=== PATIENT | male | born 1970 | race Caucasian/White ===

== ENCOUNTER 2022-02-09 21:39 | Emergency (ER) | payer OTHER, SELFPAY ==
[2022-02-09 21:45] VITALS: BP 146/78; PULSE 75; RESP 18; TEMP 36.6; O2SAT 97; BMI 29.6
[2022-02-09 23:59] LABS: SARS PCR* POSITIVE SARS-CoV-2 (Negative)
--- NOTE | 2022-02-10 00:31 | ED_ITS ---
HPI - General Adult General Chief complaint: Unspecified Complaint, Adult Stated complaint: Wants a Covid Test Time Seen by Provider: 02/09/22 23:16 History of Present Illness HPI narrative: This 51-year-old male tested positive for COVID at home and comes in stating that he needs a test from us for his work to indicate that it is truly positive for COVID. He does have symptoms of cough and decreased sense of taste and smell. He does not report any shortness of breath. He is not reporting any fevers. Related Data Home Medications Medication Instructions Recorded Confirmed apixaban 5 mg tablet (Eliquis) mg 02/09/22 flecainide 100 mg tablet mg 02/09/22 omeprazole 40 mg capsule,delayed mg 02/09/22 release simvastatin 20 mg tablet mg 02/09/22 Previous Rx's Medication Instructions Recorded acetaminophen 300 mg-codeine 30 mg 1 tab PO Q6H PRN #20 tab 02/10/22 tablet methylprednisolone 4 mg tablets in 4 mg PO DAILY #21 ea 02/10/22 a dose pack (Medrol (Lino)) Allergies Allergy/AdvReac Type Severity Reaction Status Date / Time No Known Drug Allergies Allergy Verified 02/09/22 21:49 Review of Systems Status of ROS: Reports: 10 or more systems reviewed and unremarkable except as noted in History and below Narrative: Constitutional: No fevers, no weight gain or loss. Eyes: No discharge. No vision changes. HENT: No congestion, no sore throat, no ear pain. Cardiovascular: No chest pain, no palpitations. Respiratory: No shortness of breath. Nasal congestion and cough. Gastrointestinal: No abdominal pain, no vomiting, no diarrhea. Genitourinary: No dysuria, no hematuria. Musculoskeletal: Normal range of motion. Skin: No rashes, no pruritis. Neurological: No dizziness, weakness, sensory change, speech change. Endo/Heme/Allergies: No bruising or bleeding. No polydipsia. Pysch: no suicidality, no anxiety, no insomnia. All other systems reviewed and are negative. PFSH PFS Social History Smoking Status: Former smoker How often do you have a drink containing alcohol: 2-4 times a month AUDIT-C Alcohol total score: 2 Non-prescribed substance use: denies use Exam Narrative: Exam Narrative: Constitutional: Well-developed, well-nourished, no acute distress. HEENT: Normocephalic, atraumatic. Neck: Normal range of motion. Nontender. Supple. Heart: Intact distal pulses. Lungs: No chest discomfort. No wheezes, rhonchi, or rales. Abdomen: Nontender. Back: Normal range of motion. Extremities: Normal range of motion. No injury. Skin: Intact. No rash. Warm. No erythema or pallor. Neurologic: No altered sensation. No weakness. Alert and oriented. Psychiatric: No suicidality. No anxiety or depression. No insomnia. Nursing notes and vitals signs are reviewed. Const: Vital Signs, click to edit/add: Vital Signs - 24 hr 02/09/22 21:45 Temperature 97.9 F Pulse Rate [Left P ulse Oximeter] 75 Respiratory Rate 18 Blood Pressure [Ri ght Upper Arm] 146/78 H Pulse Oximetry 97 Course Vital Signs Vital signs: Initial Vital Signs Temperature 97.9 F 02/09/22 21:45 Temperature Source Temporal Artery Scan 02/09/22 21:45 Pulse Rate 75 02/09/22 21:45 Respiratory Rate 18 02/09/22 21:45 Blood Pressure 146/78 H 02/09/22 21:45 Blood Pressure Mean 100 02/09/22 21:45 Blood Pressure Position Sitting 02/09/22 21:45 Pulse Oximetry 97 02/09/22 21:45 Oxygen Delivery Method 02/09/22 21:45 Vital Signs Temperature 97.9 F 02/09/22 21:45 Pulse Rate 75 02/09/22 21:45 Respiratory Rate 18 02/09/22 21:45 Blood Pressure 146/78 H 02/09/22 21:45 Pulse Oximetry 97 02/09/22 21:45 Temperature 97.9 F 02/09/22 21:45 Pulse Rate 75 02/09/22 21:45 Respiratory Rate 18 02/09/22 21:45 Blood Pressure 146/78 H 02/09/22 21:45 Pulse Oximetry 97 02/09/22 21:45 Medical Decision Making MDM Narrative Medical decision making narrative: This patient needs a COVID test results from a a medical facility so he comes here. His COVID test here is positive. He is not having any abnormalities in his vital signs. He is okay to return home and with instructions to come back if becoming short of breath or other worsening symptoms. He did receive a prescription for Medrol Dosepak and some tablets of Tylenol 3. Lab Data Labs: Lab Results 02/09/22 Range/Units Unknown SARS-CoV-2 (PCR) POSITIVE SARS-CoV-2 A (Negative) Discharge Plan Discharge Clinical Impression: COVID-19 Patient Disposition: Home, Self-Care Condition: Stable Instructions: COVID-19 (Coronavirus Disease 2019) (ED) Additional Instructions: Take medication as needed and prescribed. Follow up with MD or return if worsening. Prescriptions: New methylprednisolone [Medrol (Lino)] 4 mg tablets,dose pack 4 mg PO DAILY Qty: 21 0RF acetaminophen-codeine 300-30 mg tablet 1 tab PO Q6H PRN (Reason: pain) Qty: 20 0RF No Action omeprazole 40 mg capsule,delayed release(DR/EC) 0RF Label Comments: TAKE 1 CAPSULE BY MOUTH IN THE MORNING simvastatin 20 mg tablet 0RF Label Comments: TAKE 1 TABLET BY MOUTH EVERYDAY AT BEDTIME flecainide 100 mg tablet 0RF Label Comments: TAKE 1 TABLET BY MOUTH TWICE A DAY Eliquis 5 mg tablet 0RF Label Comments: TAKE 1 TABLET BY MOUTH TWICE A DAY Follow Up/Referrals: Mich Jimenez MD [Primary Care Provider] - Stand Alone Forms: [employer] Info Instructions
== END 2022-02-10 00:49 | disposition home or self-care (01) ==
PROVIDERS: Emergency Provider Emergency Medicine Emergency Medical Services; PCP Family Medicine
DX: U07.1 COVID-19 (principal)
CPT/HCPCS: 87502; 87635; 99283; 99284

== ENCOUNTER 2022-07-15 12:08 | Emergency (ER) | payer OTHER, SELFPAY ==
[2022-07-15 12:10] VITALS: BP 147/74; PULSE 61; RESP 20; TEMP 36.4; O2SAT 97; BMI 29.6
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
[2022-07-15 13:03] LABS: Basophils Absolute Auto 0.02 K/uL (0.00-0.30); Basophils Percent Auto 0.3 % (0.0-3.0); Eosinophils Absolute Auto 0.14 K/uL (0.00-0.50); Hematocrit 42.7 % (37.0-53.0); Hemoglobin* 14.7 gm/dL (13.5-17.5); Immature Granulocytes Abs Auto 0.01 K/uL (0.00-0.30); Immature Granulocytes Pct Auto 0.1 %; Lymphocytes Absolute Auto 1.97 K/uL (0.90-2.90); Lymphocytes Percent Auto 28.6 % (20-44); Mean Corpuscular HGB Conc 34 gm/dL (32-36); Mean Corpuscular Hemoglobin 31 pg (26-34); Mean Corpuscular Volume 89 fL (80-100); Monocytes Percent Auto 8.3 % (0.0-11.0); Neutrophils Absolute Auto 4.18 K/uL (1.7-7.0); Neutrophils Percent Auto 60.7 % (42.0-72.0); Platelet Count* 247 K/uL (140-440); RDW Coefficient of Variation % 12.1 % (11.5-15.5); Red Blood Count 4.79 m/uL (4.30-5.90); White Blood Count* 6.89 K/uL (4.50-11.00)
[2022-07-15 13:03] LABS: Appearance Urine Clear (Clear); Bilirubin Urine Negative (Negative); Blood Urine Negative (Negative); Color Urine Yellow (Yellow); Glucose Urine Negative (Negative); Ketones Urine Negative (Negative); Leukocyte Esterase Urine Negative (Negative); Nitrite Urine Negative (Negative); Protein Urine Negative (Negative); Specific Gravity Urine 1.015 (1.000-1.030); Urobilinogen Urine 0.2 (0.2-1.0)
[2022-07-15 13:13] LABS: RBC Urine 0-2 (0-2); WBC Urine 0-2 (0-5)
[2022-07-15 13:18] LABS: Albumin* 4.7 g/dL (3.3-5.0); Chloride* 106 mmol/L (96-114)
[2022-07-15 13:19] LABS: Potassium* 3.9 mmol/L (3.6-5.1); Sodium* 142 mmol/L (135-149)
[2022-07-15 13:20] LABS: Slide Review Reflex No
[2022-07-15 13:21] LABS: Alkaline Phosphatase* 73 U/L (40-150); Aspartate Amino Transferase* 33 U/L (12-35); Bilirubin Total* 0.6 mg/dL (0.1-1.5); Blood Urea Nitrogen* 11 mg/dL (5-24); Carbon Dioxide* 28 mmol/L (20-32); Est. Creatinine Clearance* 86.45; Estimated Glomerular Filt Rate 92 ml/min; Total Protein* 7.6 g/dL (6.0-8.3)
[2022-07-15 13:22] LABS: Alanine Aminotransferase* 31 U/L (4-50); Calcium* 9.1 mg/dL (8.4-10.6); Glucose* 89 mg/dL (60-115)
[2022-07-15 14:30] VITALS: BP 117/72; PULSE 57; RESP 16; TEMP 36.4; O2SAT 99
== END 2022-07-15 15:00 | disposition home or self-care (01) ==
PROVIDERS: Emergency Provider Family Medicine; PCP Family Medicine
DX: S16.1XXA Strain of muscle, fascia and tendon at neck level, initial encounter (principal); S39.012A Strain of muscle, fascia and tendon of lower back, initial encounter; V84.5XXA Driver of special agricultural vehicle injured in nontraffic accident, initial encounter
CPT/HCPCS: 36415; 72125; 72131; 74177; 80053; 81001; 85025; 99284; Q9967

== ENCOUNTER 2024-05-29 18:37 | Emergency (ER) | payer BC, SELFPAY ==
[2024-05-29 18:47] VITALS: BP 156/94; PULSE 79; RESP 20; TEMP 37.3; O2SAT 99; BMI 28.9
--- NOTE | 2024-05-29 19:12 | ED.GENADULT ---
HPI - General Adult General Date Seen: 05/29/24 Chief complaint: Ear/Nose/Throat Problem Stated complaint: Sinus infection Time Seen by Provider: 05/29/24 18:56 Source: patient Mode of arrival: ambulatory Limitations: no limitations History of Present Illness HPI narrative: Patient is a 53-year-old male presenting to emergency department for sinus pain. He has tenderness to his forehead feeling like previous episodes of sinusitis. He states he show sinusitis sinus maxillary sinuses. Symptoms have been going on for over week and have been getting worse. Over the past couple days he has had intermittent chills along with pain with moving his eyes. Has not noticed any redness or swelling of his eyes. Also feels like he has a band around his head causing a headache. Has been drinking plenty fluids and does not feel dehydrated. Trying Tylenol and ibuprofen at home with minimal improvement in his symptoms. Denies chest pain, shortness of breath. Have some nasal discharge earlier but does not know what color it was. Denies any vision changes the, weakness, numbness. No other concerns noted Related Data Home Medications ?Medication ?Instructions ?Recorded ?Confirmed apixaban 5 mg tablet (Eliquis) 5 mg PO Q12H 02/09/22 05/29/24 flecainide 100 mg tablet 100 mg PO Q12H 02/09/22 07/15/22 omeprazole 40 mg capsule,delayed 40 mg PO DAILY 02/09/22 07/15/22 release simvastatin 20 mg tablet 20 mg PO DAILY 02/09/22 07/15/22 Previous Rx's ?Medication ?Instructions ?Recorded acetaminophen 300 mg-codeine 30 mg 1 tab PO Q8H PRN pain #20 tabs 07/15/22 tablet cyclobenzaprine 10 mg tablet 10 mg PO TID PRN muscle spasm #20 07/15/22 tabs Allergies Allergy/AdvReac Type Severity Reaction Status Date / Time No Known Drug Allergies Allergy Verified 05/29/24 18:47 Review of Systems Status of ROS: Reports: 10 or more systems reviewed and unremarkable except as noted in History and below [facility] Social History Smoking Status: Former smoker What tobacco products do you use: cigarettes Smoking quit date/years: >15 years ago Do you use any of these nicotine containing products: None Second hand tobacco smoke exposure: No How often do you have a drink containing alcohol: monthly or less How many standard drinks containing alcohol do you have on a typical day: 1 or 2 AUDIT-C Alcohol total score: 1 Non-prescribed substance use: denies use Exam Narrative: Exam Narrative: Const: Well-nourished, Well-developed, in mild distress Eyes: PERRL, no conjunctival injection, and symmetrical lids HENT: Atraumatic external nose and ears. Moist mucous membranes. Tenderness noted to bilateral frontal sinuses Neck: Symmetric, trachea midline, No thyromegaly. MSK:Extremities w/o deformity, Normal Active ROM Skin: Warm, Dry. No rashes or lesions. Neuro: Normal Muscle tone, No focal neurological deficits. Psych: Awake, Alert, & Oriented x3. Appropriate mood and affect. Const: Vital Signs, click to edit/add: Vital Signs - 24 hr 05/29/24 18:47 Temperature 99.1 F Pulse Rate [Pulse Oximeter] 79 Respiratory Rate 20 Blood Pressure [Ri ght Upper Arm] 156/94 H Pulse Oximetry 99 Oxygen Delivery Me thod Room Air Course Vital Signs Vital signs: Initial Vital Signs Temperature 99.1 F 05/29/24 18:47 Temperature Source Temporal Artery Scan 05/29/24 18:47 Pulse Rate 79 05/29/24 18:47 Pulse Rhythm Regular 05/29/24 18:47 Respiratory Rate 20 05/29/24 18:47 Blood Pressure 156/94 H 05/29/24 18:47 Blood Pressure Mean 114 H 05/29/24 18:47 Pulse Oximetry 99 05/29/24 18:47 Oxygen Delivery Method Room Air 05/29/24 18:47 Vital Signs Temperature 99.1 F 05/29/24 18:47 Pulse Rate 79 05/29/24 18:47 Respiratory Rate 20 05/29/24 18:47 Blood Pressure 156/94 H 05/29/24 18:47 Pulse Oximetry 99 05/29/24 18:47 Oxygen Delivery Method Room Air 05/29/24 18:47 Temperature 99.1 F 05/29/24 18:47 Pulse Rate 79 05/29/24 18:47 Respiratory Rate 20 05/29/24 18:47 Blood Pressure 156/94 H 05/29/24 18:47 Pulse Oximetry 99 05/29/24 18:47 Oxygen Delivery Method Room Air 05/29/24 18:47 Medical Decision Making MDM Narrative Medical decision making narrative: Patient is a 53-year-old male presenting to emergency department for concern of sinus infection. Bilateral frontal sinuses are tender he states. They are also tender on my exam. His description of his headache sounds like a tension headache. He does have pain with eye movement but there is no cellulitis noted around the eye, proptosis, vision changes so orbital cellulitis seems unlikely and I do not believe CT scan is necessary. I do not believe lab work is necessary the at this time is he is otherwise doing well. His headache is likely from sinus pain so head CT is not necessary. Will give Toradol for pain. Symptoms have not quite been going on for 10 days he and I will treat him for sinusitis and prescribed Toradol. These were prescribed through [facility] Discharge Plan Discharge Clinical Impression: Sinusitis Qualifiers: Sinusitis location: frontal Chronicity: acute Recurrence: not specified as recurrent Qualified Code(s): J01.10 - Acute frontal sinusitis, unspecified Acute tension headache Qualifiers: Intractability: not intractable Qualified Code(s): G44.209 - Tension-type headache, unspecified, not intractable Patient Disposition: Home, Self-Care Condition: Stable Instructions: Sinusitis (ED), Tension Headache (ED) Additional Instructions: Take the antibiotics as directed. Use Toradol as needed for pain. While using Toradol to not use naproxen, ibuprofen, other NSAIDs as they are the same class of drugs. Return to emergency department for new or worsening symptoms such as redness/swelling around the eyes, vision changes, bulging eyes, or any other concerning symptoms. Prescriptions: No Action omeprazole 40 mg capsule,delayed release(DR/EC) 40 mg PO DAILY Patient Comments: TAKE 1 CAPSULE BY MOUTH IN THE MORNING simvastatin 20 mg tablet 20 mg PO DAILY Patient Comments: TAKE 1 TABLET BY MOUTH EVERYDAY AT BEDTIME flecainide 100 mg tablet 100 mg PO Q12H Patient Comments: TAKE 1 TABLET BY MOUTH TWICE A DAY Eliquis 5 mg tablet 5 mg PO Q12H Patient Comments: TAKE 1 TABLET BY MOUTH TWICE A DAY acetaminophen-codeine 300-30 mg tablet 1 tab PO Q8H PRN (Reason: pain) Qty: 20 0RF cyclobenzaprine 10 mg tablet 10 mg PO TID PRN (Reason: muscle spasm) Qty: 20 0RF Follow Up/Referrals: Mich Jimenez MD [Staff Physician] - Stand Alone Forms: [facility] Info Instructions
[2024-05-29] MEDS: KETOROLAC 30 MG/ML inj IM (19:25)
[2024-05-29 19:40] VITALS: BP 156/84; PULSE 74; RESP 20; O2SAT 99
== END 2024-05-29 19:55 | disposition home or self-care (01) ==
PROVIDERS: Emergency Provider Student in an Organized Health Care Education/Training Program
DX: J01.10 Acute frontal sinusitis, unspecified (principal); G44.209 Tension-type headache, unspecified, not intractable
CPT/HCPCS: 96372; 99282; 99283; J1885